=== PATIENT | female | born 1980 | race Caucasian/White ===

== ENCOUNTER 2020-01-22 05:06 | Inpatient (IN) | payer MEDICAID ==
[2020-01-22] MEDS ORDERED: Ondansetron 4 MG/2 ML SDV IVPUSH PRN (05:09)
[2020-01-22] MEDS ORDERED: Sodium Chloride 0.9% 10 ML SDV IV PRN (05:09)
[2020-01-22] MEDS ORDERED: Nalbuphine 10 MG/1 ML Vial IVPUSH PRN (05:09)
[2020-01-22] MEDS ORDERED: Terbutaline 1 MG/ML SDV SUBCUT PRN (05:09)
[2020-01-22] MEDS ORDERED: Sodium Chloride 0.9% 2.5 ML Syringe FLUSH PRN (05:09)
[2020-01-22] MEDS ORDERED: Misoprostol 200 MCG Tab PO PRN (05:09)
[2020-01-22] MEDS ORDERED: Butorphanol 1 MG/ML SDV IVPUSH PRN (05:09)
[2020-01-22] MEDS ORDERED: Lidocaine 1% 50 ML MDV INJECT PRN (05:09)
[2020-01-22] MEDS ORDERED: Sodium Chloride 0.9% 10 ML Syringe FLUSH PRN (05:09)
[2020-01-22] MEDS ORDERED: Carboprost Tromethamine 250 MCG/1 ML Amp IM PRN (05:09)
[2020-01-22] MEDS ORDERED: Water For Irrigation,Sterile 1,000 ML Container IRR PRN (05:09)
[2020-01-22] MEDS ORDERED: Methylergonovine 0.2 MG/1 ML Amp IM PRN ×2 (05:09→16:43)
[2020-01-22] MEDS ORDERED: Tranexamic Acid 1,000 MG in Sodium Chloride 0.9% 100 ML IV PRN ×2 (05:09→16:43)
[2020-01-22] MEDS ORDERED: Oxytocin/0.9 % Sodium Chloride 30 UNIT/500 ML BAG IV SCH ×2 (05:15)
[2020-01-22] MEDS: Lactated Ringers 1,000 ML IV SCH ×2 (05:47→06:06)
[2020-01-22] MEDS ORDERED: Bupivicaine/fentaNYL/NS 250 ML ONE (10:16)
--- NOTE | 2020-01-22 11:00 | PCM.PREANE ---
Preanesthetic Assessment - Anesthesia/Transfusion/Family Hx Anesthesia History: Prior Anesthesia Without Reaction Family History of Anesthesia Reaction: No Transfusion History: No Prior Transfusion(s) Intubation History: Unknown - Review of Systems General: No Symptoms Pulmonary: No Symptoms Cardiovascular: No Symptoms Gastrointestinal: No Symptoms Neurological: No Symptoms Other: Reports: None (Denies any personal or family hx of bleeding or clotting problems) - Physical Assessment Height: 67.25 cm Weight: 93.894 kg ASA Class: 2 Mental Status: Alert & Oriented x3 Airway Class: Mallampati = 2 Dentition: Reports: Normal Dentition ROM/Head Extension: Full - Lab Values: Laboratory Last Values WBC 13.76 K/uL (4.0-11.0) H 01/22/20 05:36 RBC 3.87 M/uL (4.30-5.90) L 01/22/20 05:36 Hgb 12.4 g/dL (12.0-16.0) 01/22/20 05:36 Hct 37.2 % (36.0-46.0) 01/22/20 05:36 MCV 96.1 fL (80.0-98.0) 01/22/20 05:36 MCH 32.0 pg (27.0-32.0) 01/22/20 05:36 MCHC 33.3 g/dL (31.0-37.0) 01/22/20 05:36 RDW Std Deviation 46.6 fl (28.0-62.0) 01/22/20 05:36 RDW Coeff of Carin 13 % (11.0-15.0) 01/22/20 05:36 Plt Count 123 K/uL (150-400) L 01/22/20 05:36 MPV 12.20 fL (7.40-12.00) H 01/22/20 05:36 Nucleated RBC % 0.0 /100WBC 01/22/20 05:36 Nucleated RBCs # 0 K/uL 01/22/20 05:36 Blood Type A POSITIVE 01/22/20 05:36 Antibody Screen NEGATIVE 01/22/20 05:36 - Allergies Allergies/Adverse Reactions: Allergies Allergy/AdvReac Type Severity Reaction Status Date / Time No Known Allergies Allergy Verified 01/22/20 07:21 - Acknowledgements Anesthesia Type Planned: Epidural Pt an Appropriate Candidate for the Planned Anesthesia: Yes Alternatives and Risks of Anesthesia Discussed w Pt/Guardian: Yes Pt/Guardian Understands and Agrees with Anesthesia Plan: Yes PreAnesthesia Questionnaire HEENT History: Reports: None Cardiovascular History: Reports: None Respiratory History: Reports: Asthma, Other (See Below) Other Respiratory History: childhood Gastrointestinal History: Reports: Irritable Bowel Syndrome Genitourinary History: Reports: None METAL FINISHER History: Reports: Endometriosis, Musculoskeletal History: Reports: Fracture, Other (See Below) Other Musculoskeletal History: L Knee cartilage surgery Neurological History: Reports: None Psychiatric History: Reports: Depression Endocrine/Metabolic History: Reports: None Hematologic History: Reports: None Immunologic History: Reports: None Oncologic (Cancer) History: Reports: None Dermatologic History: Reports: None - Infectious Disease History Infectious Disease History: Reports: Chicken Pox, MRSA, Other (See Below) Other Infectious Disease History: MRSA hx 2008 - Past Surgical History HEENT Surgical History: Reports: Adenoidectomy, Myringotomy w Tube(s), Tonsillectomy Female Surgical History: Reports: D&C, Other (See Below) Other Female Surgeries/Procedures: laparosopies for endometriosis - SUBSTANCE USE Tobacco Use Status *Q: Light Tobacco User Tobacco Use Within Last Twelve Months: Cigarettes Second Hand Smoke Exposure: No - HOME MEDS Home Medications: Home Meds Calcium Citrate 1 tab PO BID 01/22/20 [History] Pnv No.95/Ferrous Fum/Folic AC [ Vitamins Tablet] 1 tab PO DAILY 01/22/20 [History] Vitamin B Complex 1 cap PO DAILY 01/22/20 [History] buPROPion [Wellbutrin SR] 1 tab PO Q12H 01/22/20 [History] diphenhydrAMINE HCL [Unisom] 1 cap PO TID 01/22/20 [History] - CURRENT (IN HOUSE) MEDS Current Meds: Current Medications Butorphanol Tartrate (Stadol) 1 mg IVPUSH Q1H PRN PRN Reason: Pain Carboprost Tromethamine (Hemabate Ds) 250 mcg IM ASDIRECTED PRN PRN Reason: Post Hemorrhage Oxytocin/Sodium Chloride (Oxytocin 30 Unit/500 Ml-Ns) 30 unit in 500 mls @ 500 mls/hr IV TITRATE SHARRI Tranexamic Acid 1,000 mg/ (Sodium Chloride) 110 mls @ 660 mls/hr IV ONETIME PRN PRN Reason: Bleeding Oxytocin/Sodium Chloride (Oxytocin 30 Unit/500 Ml-Ns) 30 unit in 500 mls @ 2 mls/hr IV TITRATE SHARRI; Protocol Last Titration: 01/22/20 09:07 Dose: 8 munits/min, 8 mls/hr Documented by: Lactated Ringer's (Ringers, Lactated) 1,000 mls @ 150 mls/hr IV ASDIRECTED SHARRI Last Admin: 01/22/20 06:06 Dose: 150 mls/hr Documented by: Lidocaine HCl (Xylocaine 1%) 50 ml INJECT ONETIME PRN PRN Reason: Laceration repair Methylergonovine Maleate (Methergine) 0.2 mg IM ASDIRECTED PRN PRN Reason: Post Hemorrhage Misoprostol (Cytotec) 200 mcg PO ONETIME PRN PRN Reason: Post Hemorrhage Nalbuphine HCl (Nubain) 10 mg IVPUSH Q1H PRN PRN Reason: Pain (severe 7-10) Ondansetron HCl (Zofran) 4 mg IVPUSH Q6H PRN PRN Reason: Nausea/Vomiting Sodium Chloride (Saline Flush) 10 ml FLUSH ASDIRECTED PRN PRN Reason: Keep Vein Open Sodium Chloride (Saline Flush) 2.5 ml FLUSH ASDIRECTED PRN PRN Reason: Keep Vein Open Sodium Chloride (Normal Saline) 10 ml IV ASDIRECTED PRN PRN Reason: IV Use Sterile Water (Sterile Water For Irrigation) 1,000 ml IRR ASDIRECTED PRN PRN Reason: delivery Terbutaline Sulfate (Brethine) 0.25 mg SUBCUT ASDIRECTED PRN PRN Reason: Tacysystole Discontinued Medications Fentanyl/Bupivacaine HCl (Fentanyl/Bupivacaine/Ns 2 Mcg-0.125% 250 Ml) Confirm Administered Dose 250 mls @ as directed .ROUTE .[facility]-MED ONE Stop: 01/22/20 10:17
--- NOTE | 2020-01-22 16:42 | PCM.DEL ---
L & D Note - General Info Date of Service: 01/22/20 Mother's Due Date: 01/29/20 - Delivery Note Labor: Induced by ARM, Induced by Oxytocin Delivery Outcome: Livebirth Infant Delivery Method: Spontaneous Vaginal Delivery-Single Presentation: Right Occiput Anterior (CRYSTAL) Nuchal Cord: None Anesthesia Type: Epidural Amniotic Fluid Description: Clear Episiotomy Type: None Laceration: 2nd Degree Suture type: Vicryl Suture size: 2-0 Placenta: Intact, Spontaneous Cord: 3 Vessels Estimated Blood Loss: 300 Resuscitation Needed: No Sunset: Suctioned Score 1 min: 9 Score 5 min: 9 Delivery Comments (Free Text/Narrative):: Liveborn male weight 3850 grams, placenta spontaneous Paula intace 3 vessel, 2nd degree perineal laceration repaired. - General Info Date of Service: 01/22/20 - Patient Data Weight - Most Recent: 93.894 kg I&O - Last 24 Hours: Intake & Output 01/22/20 01/22/20 01/22/20 06:59 14:59 22:59 Intake Total 1000 Balance 1000 Lab Results Last 24 Hours: Laboratory Results - last 24 hr 01/22/20 01/22/20 Range/Units 05:36 05:36 WBC 13.76 H (4.0-11.0) K/uL RBC 3.87 L (4.30-5.90) M/uL Hgb 12.4 (12.0-16.0) g/dL Hct 37.2 (36.0-46.0) % MCV 96.1 (80.0-98.0) fL MCH 32.0 (27.0-32.0) pg MCHC 33.3 (31.0-37.0) g/dL RDW Std Deviation 46.6 (28.0-62.0) fl RDW Coeff of Carin 13 (11.0-15.0) % Plt Count 123 L (150-400) K/uL MPV 12.20 H (7.40-12.00) fL Nucleated RBC % 0.0 /100WBC Nucleated RBCs # 0 K/uL Blood Type A POSITIVE Antibody Screen NEGATIVE Med Orders - Current: Current Medications Butorphanol Tartrate (Stadol) 1 mg IVPUSH Q1H PRN PRN Reason: Pain Carboprost Tromethamine (Hemabate Ds) 250 mcg IM ASDIRECTED PRN PRN Reason: Post Hemorrhage Oxytocin/Sodium Chloride (Oxytocin 30 Unit/500 Ml-Ns) 30 unit in 500 mls @ 500 mls/hr IV TITRATE SHARRI Tranexamic Acid 1,000 mg/ (Sodium Chloride) 110 mls @ 660 mls/hr IV ONETIME PRN PRN Reason: Bleeding Oxytocin/Sodium Chloride (Oxytocin 30 Unit/500 Ml-Ns) 30 unit in 500 mls @ 2 mls/hr IV TITRATE SHARRI; Protocol Last Titration: 01/22/20 16:09 Dose: 500 munits/min, 500 mls/hr Documented by: Lactated Ringer's (Ringers, Lactated) 1,000 mls @ 150 mls/hr IV ASDIRECTED SHARRI Last Admin: 01/22/20 06:06 Dose: 150 mls/hr Documented by: Lidocaine HCl (Xylocaine 1%) 50 ml INJECT ONETIME PRN PRN Reason: Laceration repair Methylergonovine Maleate (Methergine) 0.2 mg IM ASDIRECTED PRN PRN Reason: Post Hemorrhage Misoprostol (Cytotec) 200 mcg PO ONETIME PRN PRN Reason: Post Hemorrhage Nalbuphine HCl (Nubain) 10 mg IVPUSH Q1H PRN PRN Reason: Pain (severe 7-10) Ondansetron HCl (Zofran) 4 mg IVPUSH Q6H PRN PRN Reason: Nausea/Vomiting Sodium Chloride (Saline Flush) 10 ml FLUSH ASDIRECTED PRN PRN Reason: Keep Vein Open Sodium Chloride (Saline Flush) 2.5 ml FLUSH ASDIRECTED PRN PRN Reason: Keep Vein Open Sodium Chloride (Normal Saline) 10 ml IV ASDIRECTED PRN PRN Reason: IV Use Sterile Water (Sterile Water For Irrigation) 1,000 ml IRR ASDIRECTED PRN PRN Reason: delivery Terbutaline Sulfate (Brethine) 0.25 mg SUBCUT ASDIRECTED PRN PRN Reason: Tacysystole Discontinued Medications Fentanyl/Bupivacaine HCl (Fentanyl/Bupivacaine/Ns 2 Mcg-0.125% 250 Ml) Confirm Administered Dose 250 mls @ as directed .[facility]TE [facility] Stop: 01/22/20 10:17 - Problem List & Annotations (1) Vaginal delivery SNOMED Code(s): 826889343 Code(s): O80 - ENCOUNTER FOR FULL-TERM UNCOMPLICATED DELIVERY Status: Acute Current Visit: No - Problem List Review Problem List Initiated/Reviewed/Updated: Yes - My Orders Last 24 Hours: My Active Orders 01/22/20 05:09 Patient Status [ADT] Routine Bedrest Bathroom Privileges [RC] ASDIRECTED Communication Order [RC] ASDIRECTED Communication Order [RC] ASDIRECTED Heart Tones [RC] CONTINUOUS Non Stress Test [RC] PER UNIT ROUTINE May Shower [RC] ASDIRECTED Notify Provider [RC] PRN Notify Provider [RC] PRN Notify Provider [RC] STAT Oxygen Therapy [RC] ASDIRECTED Up ad Margaret [RC] ASDIRECTED Vaginal Exam [RC] PRN Vaginal Exam [RC] PRN Vital Signs [RC] PER UNIT ROUTINE Vital Signs [RC] PER UNIT ROUTINE Butorphanol [Stadol] 1 mg IVPUSH Q1H PRN Carboprost Tromethamine [Hemabate DS] 250 mcg IM ASDIRECTED PRN Lidocaine 1% [Xylocaine 1%] 50 ml INJECT ONETIME PRN Methylergonovine [Methergine] 0.2 mg IM ASDIRECTED PRN Nalbuphine [Nubain] 10 mg IVPUSH Q1H PRN Ondansetron [Zofran] 4 mg IVPUSH Q6H PRN Sodium Chloride 0.9% [Normal Saline] 10 ml IV ASDIRECTED PRN Sodium Chloride 0.9% [Saline Flush] 10 ml FLUSH ASDIRECTED PRN Sodium Chloride 0.9% [Saline Flush] 2.5 ml FLUSH ASDIRECTED PRN Terbutaline [Brethine] 0.25 mg SUBCUT ASDIRECTED PRN Tranexamic Acid [Cyklokapron] 1,000 mg Sodium Chloride 0.9% [Normal Saline] 100 ml IV ONETIME Water For Irrigation,Sterile [Sterile Water for Irrigation] 1,000 ml IRR ASDIRECTED PRN miSOPROStoL [Cytotec] 200 mcg PO ONETIME PRN Scalp Electrode [WOMSER] Per Unit Routine Peripheral IV Insertion Adult [OM.PC] Routine Resuscitation Status Routine 01/22/20 05:15 Lactated Ringers [Ringers, Lactated] 1,000 ml IV ASDIRECTED Oxytocin/0.9 % Sodium Chloride [Oxytocin 30 Unit/500 ML-NS] 30 unit in 500 ml IV TITRATE Oxytocin/0.9 % Sodium Chloride [Oxytocin 30 Unit/500 ML-NS] 30 unit in 500 ml IV TITRATE Medication Administration Instruction [OM.PC] Q3H 01/22/20 05:36 RPR (SYPHILIS SERO) W/ RFLX [REF] Routine 01/22/20 Breakfast Regular Diet [DIET]
[2020-01-22] MEDS ORDERED: Bisacodyl 10 MG Supp RECTAL PRN (16:43)
[2020-01-22] MEDS ORDERED: Benzocaine/Menthol 20%-0.5% Spray 78 GM Cannister TOP PRN (16:43)
[2020-01-22] MEDS ORDERED: Witch Hazel Medicated Pads 40/Jar TOP PRN (16:43)
[2020-01-22] MEDS ORDERED: Lanolin 100% Cream 7 GM Tube TOP PRN (16:43)
[2020-01-22] MEDS ORDERED: Ibuprofen 400 MG Tab PO PRN (16:43)
[2020-01-22] MEDS ORDERED: Acetaminophen 500 MG Tab PO PRN ×2 (16:43)
--- NOTE | 2020-01-22 17:50 | PCM48HPAN ---
Post Anesthesia Note - EVALUATION WITHIN 48HRS OF ANESTHETIC Vital Signs in Normal Range: Yes Patient Participated in Evaluation: Yes Respiratory Function Stable: Yes Airway Patent: Yes Cardiovascular Function Stable: Yes Hydration Status Stable: Yes Pain Control Satisfactory: Yes Nausea and Vomiting Control Satisfactory: Yes Mental Status Recovered: Yes - COMMENTS/OBSERVATIONS Free Text/Narrative:: Denies any complaints
[2020-01-22] MEDS: Ibuprofen 800 MG Tab PO PRN (18:17)
[2020-01-22] MEDS: Docusate Sodium 100 MG Cap PO PRN (20:32)
--- NOTE | 2020-01-22 22:07 | OR ---
SURGEON: Blanca Rubalcava M.D. DATE OF PROCEDURE: 01/22/2020 PREOPERATIVE DIAGNOSES: 1. A 39-week intrauterine . 2. Advanced maternal age. 3. Prior breech converted to cephalic. POSTOPERATIVE DIAGNOSES: 1. A 39-week intrauterine . 2. Advanced maternal age. 3. Prior breech converted to cephalic. PROCEDURES: 1. Pitocin induction of labor. 2. Artificial rupture of membranes. 3. Term spontaneous vaginal delivery. 4. Repair of a second-degree laceration. PRIMARY SURGEON: Blanca Rubalcava M.D. ANESTHESIA: Epidural. ESTIMATED BLOOD LOSS: Less than 300 mL. FINDINGS: A liveborn male, scores of 9 and 9, weighing 3850 g. Placenta was spontaneous, Schultze intact, with 3 vessels, and noted to be quite calcified. A second-degree perineal laceration was repaired. COMPLICATIONS: None known. DISPOSITION: Mother and baby are in LDR in good condition. BRIEF HISTORY: This is a 39-year-old female. She is G5, P3-0-1-3. She presents at 39 weeks' gestation for induction of labor. She initially was 3 to 4 cm, 30% effaced, -3 station. She was started on Pitocin after the head had descended. She had artificial rupture of membranes. Shortly thereafter, she received an epidural for pain control. She continued to have Pitocin up to a maximum of 14 milliunits per minute. Overall, she had category I heart tones with brief episodes of category II heart tones. She progressed to complete. DESCRIPTION OF PROCEDURE: With the patient in the dorsal lithotomy position, the patient pushed over 2 contractions to a 5+ station, at which time the head was delivered spontaneously and atraumatically over the perineum with support with subsequent delivery of the 's shoulders and body without any difficulty. The infant was bulb suctioned by nose and mouth, and after 1 minute, the cord was doubly clamped and cut. The infant was handed to the mother in the presence of the nurse attending the delivery. The was a liveborn male, scores 9 and 9, weighing 3850 g. Cord blood was collected for cord ABGs as well as routine cord blood sampling. Pitocin was initiated after delivery of the infant to assist with the delivery of the placenta, which was delivered spontaneously, Schultze intact, with 3 vessels. Upon inspection of the pelvis and perineum, there were no periurethral, vaginal sidewall, cervical, or rectal lacerations. There was a small second-degree perineal laceration at the site of a prior repair. This was repaired using a running locked suture of 3-0 Vicryl for the vaginal tissue, a deep running suture of the perineum with the same suture, and a subcuticular suture, also with 3-0 Vicryl. Final sponge, needle, and instrument counts were correct. There were no known complications. Mother and baby remained in LDR in good condition. SHELLY / GILLIAN /[id number]
[2020-01-23] MEDS: Ibuprofen 800 MG Tab PO PRN ×3 (02:20→14:54)
--- NOTE | 2020-01-23 07:45 | PCM.PNPP ---
- General Info Date of Service: 01/23/20 Functional Status: Reports: Pain Controlled, Tolerating Diet, Ambulating, Urinating - Review of Systems General: Reports: No Symptoms HEENT: Reports: No Symptoms Pulmonary: Reports: No Symptoms Cardiovascular: Reports: No Symptoms Gastrointestinal: Reports: No Symptoms Genitourinary: Reports: No Symptoms Musculoskeletal: Reports: No Symptoms Skin: Reports: No Symptoms Neurological: Reports: No Symptoms Psychiatric: Reports: No Symptoms - Patient Data Vital Signs - Most Recent: Last Vital Signs Temp 36.7 C 01/23/20 04:36 Pulse 75 01/23/20 04:36 Resp 16 01/23/20 04:36 BP 111/60 01/23/20 04:36 Pulse Ox 96 01/23/20 04:36 Weight - Most Recent: 93.894 kg Lab Results - Last 24 Hours: Laboratory Results - last 24 hr 01/22/20 01/23/20 Range/Units 16:07 05:23 Hgb 10.6 L (12.0-16.0) g/dL Hct 32.0 L (36.0-46.0) % Cord ABG pH 7.301 (7.18-7.38) Cord ABG Base Excess -3 (-10--2) Cord VBG pH 7.330 (7.25-7.45) Cord VBG Base Excess -4 (-10--2) Med Orders - Current: Current Medications Acetaminophen (Tylenol Extra Strength) 500 mg PO Q4H PRN PRN Reason: Pain Acetaminophen (Tylenol Extra Strength) 1,000 mg PO Q4H PRN PRN Reason: Pain Benzocaine/Menthol (Dermoplast Pain Relief 20%-0.5% [place]) 78 gm TOP ASDIRECTED PRN PRN Reason: Perineal Comfort Measure Last Admin: 01/22/20 20:32 Dose: 1 canister Documented by: Bisacodyl (Dulcolax) 10 mg RECTAL ONETIME PRN PRN Reason: Constipation Docusate Sodium (Colace) 100 mg PO BID PRN PRN Reason: Constipation Last Admin: 01/22/20 20:32 Dose: 100 mg Documented by: Emollient Ointment (Lansinoh Hpa) 0 gm TOP ASDIRECTED PRN PRN Reason: Sore Nipples Last Admin: 01/22/20 20:32 Dose: 7 gram Documented by: Tranexamic Acid 1,000 mg/ (Sodium Chloride) 110 mls @ 660 mls/hr IV ONETIME PRN PRN Reason: Bleeding Ibuprofen (Motrin) 400 mg PO Q4H PRN PRN Reason: Pain Ibuprofen (Motrin) 800 mg PO Q6H PRN PRN Reason: Pain Last Admin: 01/23/20 02:20 Dose: 800 mg Documented by: Methylergonovine Maleate (Methergine) 0.2 mg IM ONETIME PRN PRN Reason: Excessive Vaginal Bleeding Witch [place] (Tucks) 1 pad TOP ASDIRECTED PRN PRN Reason: comfort care Last Admin: 01/22/20 20:32 Dose: 1 tub Documented by: Discontinued Medications Butorphanol Tartrate (Stadol) 1 mg IVPUSH Q1H PRN PRN Reason: Pain Carboprost Tromethamine (Hemabate Ds) 250 mcg IM ASDIRECTED PRN PRN Reason: Post Hemorrhage Oxytocin/Sodium Chloride (Oxytocin 30 Unit/500 Ml-Ns) 30 unit in 500 mls @ 500 mls/hr IV TITRATE SHARRI Tranexamic Acid 1,000 mg/ (Sodium Chloride) 110 mls @ 660 mls/hr IV ONETIME PRN PRN Reason: Bleeding Oxytocin/Sodium Chloride (Oxytocin 30 Unit/500 Ml-Ns) 30 unit in 500 mls @ 2 mls/hr IV TITRATE SHARRI; Protocol Last Titration: 01/22/20 16:09 Dose: 500 munits/min, 500 mls/hr Documented by: Lactated Ringer's (Ringers, Lactated) 1,000 mls @ 150 mls/hr IV ASDIRECTED SHARRI Last Admin: 01/22/20 06:06 Dose: 150 mls/hr Documented by: Fentanyl/Bupivacaine HCl (Fentanyl/Bupivacaine/Ns 2 Mcg-0.125% 250 Ml) Confirm Administered Dose 250 mls @ as directed .ROUTE .[facility]-MED ONE Stop: 01/22/20 10:17 Lidocaine HCl (Xylocaine 1%) 50 ml INJECT ONETIME PRN PRN Reason: Laceration repair Methylergonovine Maleate (Methergine) 0.2 mg IM ASDIRECTED PRN PRN Reason: Post Hemorrhage Misoprostol (Cytotec) 200 mcg PO ONETIME PRN PRN Reason: Post Hemorrhage Nalbuphine HCl (Nubain) 10 mg IVPUSH Q1H PRN PRN Reason: Pain (severe 7-10) Ondansetron HCl (Zofran) 4 mg IVPUSH Q6H PRN PRN Reason: Nausea/Vomiting Sodium Chloride (Saline Flush) 10 ml FLUSH ASDIRECTED PRN PRN Reason: Keep Vein Open Sodium Chloride (Saline Flush) 2.5 ml FLUSH ASDIRECTED PRN PRN Reason: Keep Vein Open Sodium Chloride (Normal Saline) 10 ml IV ASDIRECTED PRN PRN Reason: IV Use Sterile Water (Sterile Water For Irrigation) 1,000 ml IRR ASDIRECTED PRN PRN Reason: delivery Terbutaline Sulfate (Brethine) 0.25 mg SUBCUT ASDIRECTED PRN PRN Reason: Tacysystole - Infant Interaction Infant Disposition, : in Room with Family Infant Feeding: Breastfed ; Nursed Well Support Person: Significant Other - Recovery Exam Fundal Tone: Firm Fundal Level: 1 Fingerbreadths Below Umbilicus Fundal Placement: Midline Lochia Amount: Scant Lochia Color: Rubra/Red Perineum Description: Other (see below) Other Perinuem Description: 1st degree laceration Episiotomy/Laceration: Approximated Bladder Status: Voiding - Exam General: Alert, Oriented Lungs: Normal Respiratory Effort GI/Abdominal Exam: Soft, Non-Tender, No Distention Extremities: Normal Range of Motion, Non-Tender, No Pedal Edema Neurological: No New Focal Deficit Psy/Mental Status: Alert, Normal Affect, Normal Mood - Problem List & Annotations (1) Vaginal delivery SNOMED Code(s): 244304876 Code(s): O80 - ENCOUNTER FOR FULL-TERM UNCOMPLICATED DELIVERY Status: Acute Current Visit: No - Problem List Review Problem List Initiated/Reviewed/Updated: Yes - My Orders Last 24 Hours: My Active Orders 01/22/20 Dinner Regular Diet [DIET] 01/22/20 16:43 Patient Status [ADT] Routine May Shower [RC] ASDIRECTED Up ad Margaret [RC] ASDIRECTED Vital Signs [RC] PER UNIT ROUTINE Acetaminophen [Tylenol Extra Strength] 1,000 mg PO Q4H PRN Acetaminophen [Tylenol Extra Strength] 500 mg PO Q4H PRN Benzocaine/Menthol [Dermoplast Pain Relief 20%-0.5% [place]] 78 gm TOP ASDIRECTED PRN Docusate Sodium [Colace] 100 mg PO BID PRN Ibuprofen [Motrin] 400 mg PO Q4H PRN Ibuprofen [Motrin] 800 mg PO Q6H PRN Lanolin [Lansinoh HPA] See Dose Instructions TOP ASDIRECTED PRN Methylergonovine [Methergine] 0.2 mg IM ONETIME PRN Tranexamic Acid [Cyklokapron] 1,000 mg Sodium Chloride 0.9% [Normal Saline] 100 ml IV ONETIME bisacodyL [Dulcolax] 10 mg RECTAL ONETIME PRN witch [place] [Tucks] 1 pad TOP ASDIRECTED PRN Assess Lochia [WOMSER] Per Unit Routine Assess Uterine Involution [WOMSER] Per Unit Routine Peripheral IV Discontinue [OM.PC] Routine Resuscitation Status Routine 01/22/20 16:44 Perineal Care [OM.PC] Per Unit Routine - Assessment Assessment:: PPD1 after , stable minimal lochia, no complaints, would like to go home when 24 hours - Plan Plan:: Discharge instructions reviewed.
[2020-01-23] MEDS: Docusate Sodium 100 MG Cap PO PRN (08:33)
[2020-01-23 16:03] VITALS: BP 139/78; PULSE 66
== END 2020-01-23 18:41 | disposition home or self-care (01) | DRG 807 ==
LOC: MW.OBCHECK 05:06 → MW.OB 05:07 → MW.OBCHECK 05:09 → MW.OB 05:09 → OBSVTOIN 16:07 → MW.OB 01-23 04:22
PROVIDERS: ADMIT Obstetrics & Gynecology; ATTEND Obstetrics & Gynecology
PROC: 10E0XZZ Delivery of Products of Conception, External Approach (ICD-10-PCS; principal; 2020-01-22)
PROC: 0KQM0ZZ Repair Perineum Muscle, Open Approach (ICD-10-PCS; 2020-01-22)
PROC: 10907ZC Drainage of Amniotic Fluid, Therapeutic from Products of Conception, Via Natural or Artificial Opening (ICD-10-PCS; 2020-01-22)
PROC: 3E033VJ Introduction of Other Hormone into Peripheral Vein, Percutaneous Approach (ICD-10-PCS; 2020-01-22)
PROC: 3E0R3BZ Introduction of Anesthetic Agent into Spinal Canal, Percutaneous Approach (ICD-10-PCS; 2020-01-22)
PROC: 00HU33Z Insertion of Infusion Device into Spinal Canal, Percutaneous Approach (ICD-10-PCS; 2020-01-22)
DX: O70.1 Second degree perineal laceration during delivery (principal); Z37.0 Single live birth; Z3A.39 39 weeks gestation of pregnancy
CPT/HCPCS: 01967; 36415; 51702; 59025; 59409; 82803; 85014; 85018; 85027; 86592; 86850; 86900; 86901; A9270-GY; J2590; J3010; J7120